=== PATIENT | male | born 1945 | race Hispanic/Latino ===

== ENCOUNTER 2017-09-04 07:55 | Day surgery (SDC) | payer OTHER ==
[2017-08-30 12:40] VITALS: BP 118/68
[2017-08-30 13:15] LABS: BASOPHILS % (AUTO) 0.3 % (0.0-5.0); EOSINOPHILS % (AUTO) 1.6 % (0.0-8.0); LYMPHOCYTES % (AUTO) 24.9 % (21.0-51.0); MEAN CORPUSCULAR HEMOGLOBIN 29.5 pg (27.0-33.0); MEAN CORPUSCULAR HGB CONC 33.7 g/dL (32.0-36.0); MEAN CORPUSCULAR VOLUME 87.6 fL (79-99); MONOCYTES % (AUTO) 9.2 % (3.0-13.0); PLATELET COUNT (AUTO) 240 K/uL (130-400); RED BLOOD CELL COUNT(AUTO) 4.68 MIL/uL (4.50-6.20); RED CELL DISTRIBUTION WIDTH 13.8 % (11.0-15.5); WHITE BLOOD COUNT (AUTO) 7.7 K/uL (4.8-10.8)
[2017-08-30 13:15] LABS: APPEARANCE,URINE Clear (CLEAR); BILIRUBIN,URINE Negative (NEGATIVE); COLOR,URINE Yellow (YELLOW); GLUCOSE, URINE (UA) Negative (NEGATIVE); KETONES,URINE Negative (NEGATIVE); LEUKOCYTE ESTERASE ,URINE Negative (NEGATIVE); NITRATE,URINE Negative (NEGATIVE); OCCULT BLOOD,URINE Negative (NEGATIVE); PH,URINE 5.5 (5.0-8.0); PROTEIN,URINE Negative (NEGATIVE)
[2017-08-30 13:24] LABS: CREATININE 1.2 mg/dL (0.5-1.5); POTASSIUM 3.9 mmol/L (3.5-5.1)
[2017-08-30 13:27] LABS: INR 0.99 (0.85-1.15); PARTIAL THROMBOPLASTIN TIME 29.2 SEC (26.3-35.5); PROTHROMBIN TIME 10.4 SEC (9.6-11.6)
[~2017-09-04] VITALS: Ht 172.7 cm; Wt 116.6 kg
[2017-09-04] VITALS (9 sets, daily range): BP systolic 102–117; BP diastolic 60–73
[~2017-09-04 07:55] MED LIST: ASPI-1181 PO; DICY20TA11 PO; FINA5TAB41 PO; LISI-617 PO; LORA0.5T2 PO; PANT40TA25 PO; SIMV40TA5 PO; SODIUM CHLORIDE 0.9% 500ML 500 ML IV ONE; SODIUM CHLORIDE 0.9% 500ML 500 ML IV SCH; SULF1TAB42 PO
[2017-09-04] MEDS ORDERED: SODIUM CHLORIDE 0.9% 1000ML 1,000 ML IV ONE (08:32)
[2017-09-04] MEDS ORDERED: IOPAMIDOL-370 75 ML VIAL IV ONE ×2 (10:58→11:32)
[2017-09-04] MEDS ORDERED: BIVALIRUDIN 250 MG/VIAL IV ONE (10:58)
[2017-09-04] MEDS ORDERED: LIDOCAINE HCL 2% 20ML ONE (10:58)
[2017-09-04] MEDS ORDERED: IOPAMIDOL-370 100 ML VIAL IV ONE (10:58)
[2017-09-04] MEDS ORDERED: HEPARIN SODIUM 1000UNIT/ML 10ML VIAL ONE (10:58)
[2017-09-04] MEDS ORDERED: MIDAZOLAM HCL 1 MG/ML 2ML VIAL ONE (11:09)
[2017-09-04] MEDS ORDERED: SODIUM CHLORIDE 0.9% 1000ML 1,000 ML IV SCH (11:47)
== END 2017-09-04 16:20 | disposition home or self-care (01) ==
LOC: DAH 07:55
PROVIDERS: ATTEND Internal Medicine Cardiovascular Disease
DX: R07.9 Chest pain, unspecified (principal); I10 Essential (primary) hypertension; E78.5 Hyperlipidemia, unspecified; K21.9 Gastro-esophageal reflux disease without esophagitis
CPT/HCPCS: 36415; 71045; 80048; 81003; 85025; 85610; 85730; 93005; 93458; 99156; 99157; A4606; C1760; C1894; J1644; J2250; J3490; J7030; J7040; Q9967 ×3; 99152; 99153; J0583

== ENCOUNTER 2019-12-04 10:09 | Emergency (ER) | payer OTHER ==
[~2019-12-04 10:09] MED LIST changes: -DICY20TA11 PO; +SIMV-46 PO; -SIMV40TA5 PO; -SODIUM CHLORIDE 0.9% 500ML 500 ML IV ONE; -SODIUM CHLORIDE 0.9% 500ML 500 ML IV SCH; -SULF1TAB42 PO
[2019-12-04] MEDS ORDERED: ASPIRIN 325 MG TABLET ONE (10:27)
[2019-12-04] MEDS ORDERED: NITROGLYCERIN 1GM/1 INCH PACKET TD ONE (10:27)
[2019-12-04 10:36] LABS: BASOPHILS % (AUTO) 0.2 % (0.0-5.0); EOSINOPHILS % (AUTO) 0.5 % (0.0-8.0); HEMATOCRIT 42.8 % (42-54); LYMPHOCYTES % (AUTO) 19.2 % (21.0-51.0); MEAN CORPUSCULAR HEMOGLOBIN 29.1 pg (27.0-33.0); MEAN CORPUSCULAR HGB CONC 32.5 g/dL (32.0-36.0); MEAN CORPUSCULAR VOLUME 89.5 fL (79-99); MONOCYTES % (AUTO) 4.3 % (3.0-13.0); NEUTROPHILS % (AUTO) 75.6 % (40.0-77.0); PLATELET COUNT (AUTO) 167 K/uL (130-400); RED BLOOD CELL COUNT(AUTO) 4.78 MIL/uL (4.50-6.20); WHITE BLOOD COUNT (AUTO) 8.6 K/uL (4.8-10.8)
[2019-12-04 10:42] LABS: POTASSIUM 4.4 mmol/L (3.5-5.1)
[2019-12-04 10:44] LABS: INR 0.97 (0.85-1.15); PARTIAL THROMBOPLASTIN TIME 27.8 SEC (26.3-35.5); PROTHROMBIN TIME 10.5 SEC (9.6-11.6)
[2019-12-04 10:47] LABS: ALBUMIN 3.7 g/dL (3.5-5.0); BILIRUBIN,TOTAL 0.5 mg/dL (0.2-1.0)
== END 2019-12-04 15:43 | disposition home or self-care (01) ==
LOC: EDH 10:09
DX: R07.89 Other chest pain (principal); E11.9 Type 2 diabetes mellitus without complications; I10 Essential (primary) hypertension; Z90.49 Acquired absence of other specified parts of digestive tract; Z87.891 Personal history of nicotine dependence
CPT/HCPCS: 36415; 71045; 80053; 82550; 84484; 85025; 85610; 85730; 93005